=== PATIENT | female | born 1990 | race Caucasian/White ===

== ENCOUNTER 2019-08-17 23:10 | Emergency (ER) | payer SELFPAY ==
[~2019-08-17] VITALS: Ht 162.6 cm; Wt 106.1 kg
[~2019-08-17 23:10] MED LIST: PREN-385 PO
[2019-08-17 23:15] VITALS: BP 123/75
--- NOTE | 2019-08-17 23:15 | NUR ---
TO BED # 03 AMBULATORY
--- NOTE | 2019-08-17 23:20 | NUR ---
PLACED IN BED 3. HERE FOR SORE THROAT, HEADACHE. ALSO VERBALIZED ON AND OFF CHEST PAIN. DENIES CHEST PAIN AT THIS TIME.
--- NOTE | 2019-08-17 23:40 | NUR ---
ER-MD CAME BY BEDSIDE TO EVALUATE PT.
[2019-08-17] MEDS: MORPHINE SULFATE 4 MG/ML SYR IM ONE (23:56)
--- NOTE | 2019-08-17 23:56 | NUR ---
MORPHINE 4 MG IM GIVEN ORDERED FOR PAIN.
--- NOTE | 2019-08-18 00:29 | NUR ---
DISCHARGED STABLE. PRESCRIPTION,VERBAL AND WRITTEN AFTERCARE INSTRUCTIONS GIVEN. VERBALIZED UNDERSTANDING. LEFT AMBULATORY WITH STABLE GAIT.
[2019-08-18 00:45] VITALS: BP 116/66
== END 2019-08-18 00:29 | disposition home or self-care (01) ==
LOC: MED 23:10
DX: J02.9 Acute pharyngitis, unspecified (principal); M54.2 Cervicalgia; M79.10 Myalgia, unspecified site; Z79.899 Other long term (current) drug therapy
CPT/HCPCS: 96372; 99283; J2270

== ENCOUNTER 2021-10-31 20:55 | Emergency (ER) | payer MEDICAID ==
[~2021-10-31] VITALS: Ht 162.6 cm; Wt 117.9 kg
[2021-10-31 21:29] VITALS: BP 131/70
--- NOTE | 2021-11-01 00:25 | NUR ---
ER MD CALLED FOR PATIENT NO ANSWER AT THIS TIME
--- NOTE | 2021-11-01 00:25 | NUR ---
PATIENT LEFT WITHOUT BEING SEEN BY DR. LEE. NO FURTHER CARE PROVIDED FOR PATIENT.
== END 2021-11-01 00:25 | disposition left against medical advice (07) ==
LOC: MED 20:55
DX: M79.10 Myalgia, unspecified site (principal); Z53.21 Procedure and treatment not carried out due to patient leaving prior to being seen by health care provider

== ENCOUNTER 2022-08-20 13:19 | Emergency (ER) | payer MEDICAID ==
[~2022-08-20] VITALS: Ht 162.6 cm; Wt 111.1 kg
[2022-08-20 13:24] VITALS: BP 136/92
--- NOTE | 2022-08-20 13:31 | NUR ---
PT WAS TRIAGED FOR EPIGASTRIC PAIN X10 DAYS, NO ACUTE DISTRESS. PUT BACK IN FOR BED AVAILABLE.
--- NOTE | 2022-08-20 13:48 | NUR ---
PT WAS EXAMINED BY PA IN HALLWAY.
[2022-08-20] MEDS ORDERED: DICYCLOMINE HCL LIQUID 20 MG, ALUMINUM HYD/MAG/SIMETHICONE 30 ML, LIDOCAINE VISCOUS 2% ... PO ONE ×3 (14:15)
[2022-08-20 14:16] LABS: BASOPHILS % (AUTO) 0.5 % (0.0-2.0); EOSINOPHILS # (AUTO) 0.1 K/uL (0-0.4); EOSINOPHILS % (AUTO) 1.6 % (0.0-4.0); HEMATOCRIT 38.6 % (36-48); HEMOGLOBIN 12.9 g/dL (12.0-16.0); LYMPHOCYTES # (AUTO) 1.7 K/uL (2.5-16.5); LYMPHOCYTES % (AUTO) 21.5 % (20.5-51.1); MEAN CORPUSCULAR HEMOGLOBIN 29 pg (27-31); MEAN CORPUSCULAR HGB CONC 34 g/dL (33-37); MONOCYTES # (AUTO) 0.6 K/uL (0.8-1.0); MONOCYTES % (AUTO) 7.1 % (1.7-9.3); NEUTROPHILS # (AUTO) 5.6 K/uL (1.8-7.7); NEUTROPHILS % (AUTO) 69.3 % (42.2-75.2); PLATELET COUNT (AUTO) 269 K/uL (140-450); RED BLOOD CELL COUNT(AUTO) 4.49 MIL/uL (4.20-5.40); RED CELL DISTRIBUTION WIDTH 13.5 % (11.6-13.7); WHITE BLOOD COUNT (AUTO) 8.1 K/uL (4.8-10.8)
[2022-08-20 14:32] LABS: ALBUMIN 4.5 g/dL (3.4-5.0); ANION GAP 9.4 (8-16); CARBON DIOXIDE 28.4 mmol/L (21-32); CREATININE 0.7 mg/dL (0.6-1.3); POTASSIUM 3.8 mmol/L (3.5-5.1); TOTAL BILIRUBIN 0.7 mg/dL (0.0-1.0)
[2022-08-20] MEDS ORDERED: DICYCLOMINE HCL LIQUID 10 MG/5 ML UDC ONE (14:38)
[2022-08-20] MEDS ORDERED: ALUMINUM HYD/MAG/SIMETHICONE 30 ML UDC ONE (14:38)
--- NOTE | 2022-08-20 14:39 | NUR ---
PUT PT ON BED 7 FROM WR.
--- NOTE | 2022-08-20 14:48 | NUR ---
32 Y/O F BIB SELF C/O EPIGATRIC PAIN 9/10 ON AND OFF FOR 10 DAYS, BURNING PAIN. NKA OR PMH
[2022-08-20] MEDS ORDERED: FAMO-90 PO (16:00)
[2022-08-20] MEDS ORDERED: SUCR1TAB35 PO (16:00)
[2022-08-20] MEDS ORDERED: SIME80TA41 PO (16:00)
--- NOTE | 2022-08-20 16:05 | NUR ---
Patient discharged with v/s stable. Written and verbal after care instructions given and explained. Patient alert, oriented and verbalized understanding of instructions. Ambulatory with steady gait. All questions addressed prior to discharge. ID band removed. Patient advised to follow up with PMD. Rx of FAMOTIDINE,MSIMETHIDCONE,SUCRALFATE given. Opportunity to ask questions provided and answered.
--- NOTE | 2022-08-20 16:06 | NUR ---
The patient's care was reviewed and supervised by Sadie Burotn, RN, RN.
== END 2022-08-20 16:05 | disposition home or self-care (01) ==
LOC: MED 13:19
DX: K21.9 Gastro-esophageal reflux disease without esophagitis (principal); Z79.899 Other long term (current) drug therapy
CPT/HCPCS: 36415; 76705; 80053; 83690; 85025; 99284; Q0092

== ENCOUNTER 2022-10-18 02:34 | Emergency (ER) | payer MEDICAID ==
[~2022-10-18] VITALS: Ht 162.6 cm; Wt 119.7 kg
[~2022-10-18 02:34] MED LIST changes: +FAMO-90 PO; +SIME80TA41 PO; +SUCR1TAB35 PO
[2022-10-18 02:43] VITALS: BP 131/96
--- NOTE | 2022-10-18 02:43 | NUR ---
c/o 10/10 jaw pain radiating to neck and head x 4 days. per pt, tried tylenol 500mg, and ibuprofen 800mg but ineffective. denies any pmhx, denies allergies.
--- NOTE | 2022-10-18 02:50 | NUR ---
Dr. Gaytan evaluating patient at this time.
[2022-10-18] MEDS ORDERED: KETOROLAC 60 MG/2 ML VIAL IM ONE (02:55)
[2022-10-18] MEDS ORDERED: NAPR-54 PO (05:11)
[2022-10-18 05:13] VITALS: BP 131/96
== END 2022-10-18 05:13 | disposition home or self-care (01) ==
LOC: MED 02:34
DX: M26.622 Arthralgia of left temporomandibular joint (principal); Z79.899 Other long term (current) drug therapy
CPT/HCPCS: 96372; 99283; J1885

== ENCOUNTER 2023-02-07 16:26 | Emergency (ER) | payer MEDICAID ==
[~2023-02-07] VITALS: Ht 162.6 cm; Wt 121.6 kg
[~2023-02-07 16:26] MED LIST changes: +NAPR-54 PO
[2023-02-07 16:37] VITALS: BP 146/93; PULSE 84; RESP 20; TEMP 98.3; O2SAT 100
[2023-02-07] MEDS ORDERED: HYDROcodone/APAP 5/325 MG 1 TAB TAB PO ONE (16:55)
[2023-02-07] MEDS ORDERED: ONDANSETRON 4 MG ODT PO ONE (16:55)
[2023-02-07] MEDS ORDERED: FAMOTIDINE 20 MG TAB PO ONE (16:55)
[2023-02-07 17:13] LABS: BASOPHILS % (AUTO) 0.4 % (0.0-2.0); EOSINOPHILS # (AUTO) 0.1 K/uL (0-0.4); EOSINOPHILS % (AUTO) 1.7 % (0.0-4.0); HEMOGLOBIN 11.9 g/dL (12.0-16.0); LYMPHOCYTES # (AUTO) 1.5 K/uL (2.5-16.5); LYMPHOCYTES % (AUTO) 23.6 % (20.5-51.1); MEAN CORPUSCULAR HEMOGLOBIN 29 pg (27-31); MEAN CORPUSCULAR HGB CONC 33 g/dL (33-37); MEAN CORPUSCULAR VOLUME 87.1 fL (80-94); MONOCYTES # (AUTO) 0.4 K/uL (0.8-1.0); MONOCYTES % (AUTO) 6.6 % (1.7-9.3); NEUTROPHILS # (AUTO) 4.4 K/uL (1.8-7.7); NEUTROPHILS % (AUTO) 67.7 % (42.2-75.2); PLATELET COUNT (AUTO) 227 K/uL (140-450); RED BLOOD CELL COUNT(AUTO) 4.13 MIL/uL (4.20-5.40); RED CELL DISTRIBUTION WIDTH 14.1 % (11.6-13.7); WHITE BLOOD COUNT (AUTO) 6.4 K/uL (4.8-10.8)
[2023-02-07 17:27] LABS: ALBUMIN 3.7 g/dL (3.4-5.0); ANION GAP 12.6 (8-16); CALCIUM 8.2 mg/dL (8.5-10.1); CARBON DIOXIDE 26.3 mmol/L (21-32); CREATININE 0.9 mg/dL (0.6-1.3); POTASSIUM 3.9 mmol/L (3.5-5.1); TOTAL BILIRUBIN 0.4 mg/dL (0.0-1.0); TOTAL PROTEIN, SERUM 7.3 g/dL (6.4-8.2)
[2023-02-07] MEDS ORDERED: MAG355OR2 PO (17:41)
[2023-02-07] MEDS ORDERED: ONDA-188 PO (17:41)
[2023-02-07] MEDS ORDERED: FAMO-90 PO (17:41)
[2023-02-07] MEDS ORDERED: ALUMINUM HYD/MAG/SIMETHICONE 30 ML UDC PO ONE (18:00)
[2023-02-07] MEDS ORDERED: KETOROLAC 30 MG/ML VIAL IM ONE (18:00)
[2023-02-07] MEDS ORDERED: AMOX1TAB8 PO (18:03)
== END 2023-02-07 18:25 | disposition home or self-care (01) ==
LOC: MED 16:26
DX: K29.70 Gastritis, unspecified, without bleeding (principal); N39.0 Urinary tract infection, site not specified; Z79.899 Other long term (current) drug therapy; Z90.49 Acquired absence of other specified parts of digestive tract
CPT/HCPCS: 36415; 80053; 81002; 81025; 83690; 85025; 99284; Q0162

== ENCOUNTER 2023-03-08 22:38 | Emergency (ER) | payer MEDICAID ==
[~2023-03-08] VITALS: Ht 160 cm; Wt 117.9 kg
[~2023-03-08 22:38] MED LIST changes: +AMOX1TAB8 PO; +MAG355OR2 PO; +ONDA-188 PO
[2023-03-08 23:02] VITALS: BP 144/87; PULSE 91; RESP 16; TEMP 98.1; O2SAT 100
[2023-03-09 02:47] VITALS: BP 144/87; PULSE 91; RESP 16; TEMP 98.1; O2SAT 100
== END 2023-03-09 02:47 | disposition left against medical advice (07) ==
LOC: MED 22:38
DX: M54.2 Cervicalgia (principal); Z53.21 Procedure and treatment not carried out due to patient leaving prior to being seen by health care provider
CPT/HCPCS: 81002; 81025; 99281